=== PATIENT | female | born 1965 | race Caucasian/White ===

== ENCOUNTER → 2017-02-16 | Outpatient (CLI) | payer OTHER ==
[~2017-02-16] VITALS: Ht 168.9 cm; Wt 75.7 kg
[~2017-02-16] MED LIST: ANTABUSE250 MG PO; ANTABUSE500 MG PO; CAMPRAL333 M1 PO; CHLORDIAZEPOXID25 MG; CHLORDIAZEPOXIDE5 MG; CITALOPRAM HBR20 M1 PO; CITALOPRAM HBR20 MG; CITALOPRAM HBR20 MG PO; COUMADIN,JANTOVE5 MG PO; Coumadin,Jantoven PO; DESYREL12.5 MG; DISULFIRAM250 MG; FOLVITE1 M1 PO; Habitrol,Nicoderm CQ TD; L-LYSINE500 M1 PO; LORAZEPAM2 MG; LOVENOX60 MG/0.6 SC; Levaquin PO; MULTI-BETIC TA1 EACH PO; PROAIR HFA8.5 GM IH; PROTONIX40 MG PO; THIAMINE,VITAM100 MG PO
== END | disposition home or self-care (01) ==
LOC: AMB 11:07
PROC: 0DBK8ZX Excision of Ascending Colon, Via Natural or Artificial Opening Endoscopic, Diagnostic (ICD-10-PCS; principal; 2017-02-16)
DX: Z12.11 Encounter for screening for malignant neoplasm of colon (principal); K63.5 Polyp of colon; K64.8 Other hemorrhoids; F10.21 Alcohol dependence, in remission; F32.9 Major depressive disorder, single episode, unspecified; R73.01 Impaired fasting glucose; Z86.711 Personal history of pulmonary embolism; Z87.891 Personal history of nicotine dependence; Z80.3 Family history of malignant neoplasm of breast; Z83.3 Family history of diabetes mellitus; Z82.49 Family history of ischemic heart disease and other diseases of the circulatory system
CPT/HCPCS: 88305